=== PATIENT | female | born 1990 | race Hispanic/Latino ===

== ENCOUNTER 2018-05-19 17:10 | Emergency (ER) | payer BC ==
[2018-05-19 17:17] VITALS: BP 117/84
--- NOTE | 2018-05-19 20:20 | Emergency Department Report ---
ED Lower Extremity HPI - General Chief Complaint: Extremity Injury, Lower Stated Complaint: RIGHT KNEE PAIN Time Seen by Provider: 05/19/18 20:05 Source: patient Mode of arrival: Ambulatory Limitations: No Limitations - History of Present Illness Initial Comments: This is a 27-year-old female who presents with right knee pain radiating to right heel for 2 weeks. Patient states pain is worse with weightbearing. She is currently applying icy hot pad with some improvement of symptoms. Patient reports pain is currently 7 out of 10 on pain scale and achy. States symptoms are worse at night. Menstrual period 05/12/2018. She denies numbness or tingling, edema, erythema, fever, recent injury. MD Complaint: leg injury (right knee pain radiating into right foot) Onset/Timin -: week(s) Injury: Knee: Right, Ankle: Right Type of Injury: unknown Place: home Severity: moderate Severity scale (0 -10): 7 Improves With: nothing Worsens With: weight bearing Associated Symptoms: swelling, ambulatory. denies: snap/pop sensation, numbness , tingling, unable to bear weight, able to partially bear weight Treatments Prior to Arrival: cold therapy, NSAIDS - Related Data Previous Rx's Medication Instructions Recorded Last Taken Type Ibuprofen [Motrin 800 MG tab] 800 mg PO Q8HR PRN #14 tablet 05/19/18 Unknown Rx Allergies Allergy/AdvReac Type Severity Reaction Status Date / Time No Known Allergies Allergy Unverified 05/19/18 17:14 ED Review of Systems ROS: Stated complaint: RIGHT KNEE PAIN Other details as noted in HPI Constitutional: denies: chills, fever Respiratory: denies: cough, shortness of breath, wheezing Cardiovascular: denies: chest pain, palpitations Gastrointestinal: denies: abdominal pain, nausea, diarrhea Musculoskeletal: arthralgia (right knee pain radiated into her right foot). denies: back pain, joint swelling Skin: denies: rash, lesions Neurological: denies: headache, weakness, paresthesias Psychiatric: denies: anxiety, depression ED Past Medical Hx - Past Medical History Previous Medical History?: No - Surgical History Past Surgical History?: No - Social History Smoking Status: Never Smoker Substance Use Type: None - Medications Home Medications: Home Medications Medication Instructions Recorded Confirmed Last Taken Type Ibuprofen [Motrin 800 MG tab] 800 mg PO Q8HR PRN #14 tablet 05/19/18 Unknown Rx ED Physical Exam - General Limitations: No Limitations General appearance: alert, in no apparent distress, obese - Respiratory Respiratory exam: Present: normal lung sounds bilaterally. Absent: respiratory distress - Cardiovascular Cardiovascular Exam: Present: regular rate, normal rhythm. Absent: systolic murmur, diastolic murmur, rubs, gallop - GI/Abdominal GI/Abdominal exam: Present: soft, normal bowel sounds - Expanded Lower Extremity Exam Right Hip exam: Present: normal inspection, full ROM Upper Leg exam: Present: normal inspection, full ROM Knee exam: Present: full ROM, pain w/ pronation/supination, full knee extension. Absent: swelling, abrasion, laceration, ecchymosis, deformity, crepidus, dislocation, erythema, effusion, posterior draw sign, pain/laxity with valgus, pain/laxity with varus Lower Leg exam: Present: normal inspection, full ROM Ankle exam: Present: normal inspection, full ROM Foot/Toe exam: Present: normal inspection, full ROM. Absent: tenderness, swelling, abrasion, laceration, ecchymosis, deformity, crepidus, dislocation, erythema, amputation, puncture wound, foreign body, calcaneal tenderness, tenderness at base of 5th metatarsal, nail avulsion, subungual hematoma Neuro vascular tendon exam: Present: no vascular compromise Gait: Positive: observed and normal - Neurological Exam Neurological exam: Present: alert, oriented X3 - Psychiatric Psychiatric exam: Present: normal affect, normal mood - Skin Skin exam: Present: warm, dry, intact, normal color. Absent: rash ED Course Vital Signs 05/19/18 17:14 Temperature 98.4 F Pulse Rate 80 Respiratory 18 Rate Blood Pressure 117/84 O2 Sat by Pulse 97 Oximetry ED Lower Extremity MDM - Radiology Data Radiology results: report reviewed, image reviewed FINAL REPORT EXAM: XR KNEE 1-2V RT HISTORY: right knee pain TECHNIQUE: Frontal and lateral views of right knee. PRIORS: None. FINDINGS: Joint spaces maintained. No apparent fracture or dislocation. Soft tissues grossly unremarkable. IMPRESSION: 1. No acute or significant osseous abnormality. FINAL REPORT EXAM: XR FOOT 2V RT HISTORY: right foot pain . Pain and swelling for 2-3 weeks with no known injury TECHNIQUE: AP and lateral portable views of the right foot PRIORS: None. FINDINGS: In the midshaft of the 5th metatarsal, there is an oblique sclerotic line which could signify a stress fracture. This is not well seen on the lateral view due to positioning. There is swelling overlying the lateral aspect of the right midfoot. There is no other evidence for acute fracture or dislocation. No radiopaque foreign bodies are seen. No air in the soft tissues is noted. Bony mineralization is normal. Joint spaces are maintained. IMPRESSION: Soft tissue swelling over the lateral midfoot. On the AP view only, oblique linear sclerotic line in the 5th metatarsal shaft could represent a stress fracture. - Medical Decision Making Patient was examined by me. Vitals are normal and patient is in no acute distress. She given Toradol 30 mg IM once while in ER. Obtained x-rays of right knee and right foot. X-rays dictated by radiologist. Soft tissue swelling over the lateral midfoot. On the AP view only, oblique linear sclerotic line in the 5th metatarsal shaft could represent a stress fracture. Patient informed of results. Right foot placed in postop surgical shoe. Start ibuprofen for pain associated with stress fracture. Referral to orthopedic surgery for continuance of care. Plan discussed with patient to discharge home and treat outpatient. Patient discharged home in stable condition. Follow up with PCP in 2-3 days. Critical care attestation.: If time is entered above; I have spent that time in minutes in the direct care of this critically ill patient, excluding procedure time. ED Disposition Clinical Impression: Right foot pain Right knee pain Qualifiers: Chronicity: acute Qualified Code(s): M25.561 - Pain in right knee Stress fracture of metatarsal bone Qualifiers: Encounter type: initial encounter Laterality: right Qualified Code(s): M84.374A - Stress fracture, right foot, initial encounter for fracture Disposition: DC- TO HOME OR SELFCARE Is pt being admited?: No Does the pt Need Aspirin: No Condition: Stable Instructions: Foot Fracture in Adults (ED), Arthralgia (ED) Additional Instructions: Rest Use ice or heat on affected area for 20 minutes and off for 2 hours. Take pain medication every 6 hours as needed for pain. Follow-up with orthopedic surgeon for continuance of care. Follow up with Primary Care Provider in 2-3 days. Prescriptions: Ibuprofen [Motrin 800 MG tab] 800 mg PO Q8HR PRN #14 tablet PRN Reason: Pain , Severe (7-10) Referrals: SARBJIT GUNN MD [Staff Physician] - 3-5 Days [facility] [Provider Group] - 3-5 Days [facility] [Outside] - 3-5 Days Forms: Work/School Release Form(ED) Time of Disposition: 22:59 Print Language: MALTESE
--- NOTE | 2018-05-19 21:58 | XRay Report ---
FINAL REPORT EXAM: XR KNEE 1-2V RT HISTORY: right knee pain TECHNIQUE: Frontal and lateral views of right knee. PRIORS: None. FINDINGS: Joint spaces maintained. No apparent fracture or dislocation. Soft tissues grossly unremarkable. IMPRESSION: 1. No acute or significant osseous abnormality.
--- NOTE | 2018-05-19 22:40 | XRay Report ---
FINAL REPORT EXAM: XR FOOT 2V RT HISTORY: right foot pain . Pain and swelling for 2-3 weeks with no known injury TECHNIQUE: AP and lateral portable views of the right foot PRIORS: None. FINDINGS: In the midshaft of the 5th metatarsal, there is an oblique sclerotic line which could signify a stress fracture. This is not well seen on the lateral view due to positioning. There is swelling overlying the lateral aspect of the right midfoot. There is no other evidence for acute fracture or dislocation. No radiopaque foreign bodies are seen. No air in the soft tissues is noted. Bony mineralization is normal. Joint spaces are maintained. IMPRESSION: Soft tissue swelling over the lateral midfoot. On the AP view only, oblique linear sclerotic line in the 5th metatarsal shaft could represent a stress fracture.
[2018-05-19] MEDS ORDERED: TORADOL IM ONE (22:48)
== END 2018-05-19 23:15 | disposition home or self-care (01) ==
LOC: ED 17:10
DX: M84.374A Stress fracture, right foot, initial encounter for fracture (principal); M25.561 Pain in right knee; M79.671 Pain in right foot
CPT/HCPCS: 73560; 73620; 96372; 99283; J1885